=== PATIENT | female | born 1985 | race Caucasian/White ===

== ENCOUNTER 2016-07-30 09:53 | Emergency (ER) | payer OTHER ==
[2016-07-30 10:19] VITALS: RESP 18
--- NOTE | 2016-07-30 10:41 | ED ---
General Adult HPI - General Chief complaint: Chest Pain Stated complaint: chest pain Time Seen by Provider: 07/30/16 10:02 Source: patient, RN notes reviewed Mode of arrival: wheelchair Limitations: no limitations - History of Present Illness Initial comments: Patient is 30-year-old female presents to the emergency room for evaluation of pain in her left shoulder. Patient states pain began about 5 months ago. Patient states the pain got worse today while at work. Patient states the pain radiates from her left shoulder into the left side of her chest. Patient states the pain is worse with movement. Patient denies shortness of breath. Patient denies any cardiac history. Patient denies any family history of cardiac issues. Patient denies headache or dizziness. Patient denies heart palpitations. Patient denies fevers or chills. Patient's cough. 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 - Related Data Home Medications Medication Instructions Recorded Confirmed Ibuprofen [Motrin] 600 mg PO Q8HR PRN 07/30/16 07/30/16 Allergies Allergy/AdvReac Type Severity Reaction Status Date / Time amoxicillin Allergy Rash/Hives Verified 07/30/16 10:54 Review of Systems ROS Statement: Those systems with pertinent positive or pertinent negative responses have been documented in the HPI. ROS Other: All systems not noted in ROS Statement are negative. Past Medical History Past Medical History: No Reported History History of Any Multi-Drug Resistant Organisms: None Reported Past Surgical History: No Surgical Hx Reported Past Psychological History: No Psychological Hx Reported Smoking Status: Current every day smoker Past Alcohol Use History: Occasional Past Drug Use History: Marijuana General Exam - General Exam Comments Initial Comments: Sitting in exam room, no acute distress. Limitations: no limitations General appearance: alert, in no apparent distress Head exam: Present: atraumatic, normocephalic, normal inspection Eye exam: Present: normal appearance ENT exam: Present: normal exam Neck exam: Present: normal inspection Respiratory exam: Present: normal lung sounds bilaterally. Absent: respiratory distress Cardiovascular Exam: Present: regular rate, normal rhythm, normal heart sounds Back exam: Present: normal inspection Neurological exam: Present: alert, oriented X3, CN II-XII intact, normal gait Psychiatric exam: Present: normal affect, normal mood Skin exam: Present: warm, dry, intact, normal color. Absent: rash Course Vital Signs 07/30/16 07/30/16 07/30/16 09:55 10:15 11:38 Temperature 97.7 F 99.3 F 98.6 F Pulse Rate 73 78 58 L Respiratory 20 18 18 Rate Blood Pressure 133/79 133/75 129/79 O2 Sat by Pulse 99 98 97 Oximetry EKG Findings - EKG Comments: EKG Findings:: Normal sinus rhythm, ventricular rate 63 bpm, WI interval 158 ms , QRS duration 102 ms, QT/QTC 398/407 ms Medical Decision Making - Medical Decision Making Patient is a 30-year-old female presents emergency room for evaluation of left shoulder pain. EKG and chest x-ray done. Patient refused any further workup and states she'll follow up with her primary care provider. Patient declined anything for pain. Patient states she did initially complain of right greater toe pain during triage but does not want any further workup regarding it. Patient states she understands everything that was discussed with her. Return parameters discussed. Case discussed Dr. Ferrer. - Radiology Data Radiology results: report reviewed, image reviewed Disposition Clinical Impression: Costochondritis Disposition: HOME SELF-CARE Condition: Good Instructions: Costochondritis (ED) Additional Instructions: Take Tylenol or Motrin as needed for pain. Please up with primary care provider for further evaluation. If any new symptom arises or symptoms worsen, return to ER as soon as possible. Referrals: Alejandra Wu MD [Primary Care Provider] - 1-2 days Time of Disposition: 11:29
--- NOTE | 2016-07-30 10:45 | XR ---
EXAMINATION TYPE: XR chest 2V DATE OF EXAM: 07/30/2016 COMPARISON: NONE TECHNIQUE: PA and lateral views submitted. HISTORY: Chest pain FINDINGS: The lungs are clear and there is no pneumothorax, pleural effusion, or focal pneumonia. IMPRESSION: 1. No acute process.
[2016-07-30 11:39] VITALS: BP 129/79; PULSE 58; TEMP 98.6
== END 2016-07-30 11:39 | disposition home or self-care (01) ==
LOC: EC 09:53
DX: M94.0 Chondrocostal junction syndrome [Tietze] (principal); M25.512 Pain in left shoulder; F17.200 Nicotine dependence, unspecified, uncomplicated; Z88.0 Allergy status to penicillin
CPT/HCPCS: 71020; 93005; 99285